=== PATIENT | female | born 1940 | race Caucasian/White ===

== ENCOUNTER 2019-04-22 10:55 | Outpatient (CLI) | payer BC ==
[2015-01-20 09:14] VITALS: O2SAT 95
== END 2019-04-22 10:56 | disposition home or self-care (01) | DRG 552 ==
LOC: CONVCARE 10:55
PROVIDERS: ATTEND Orthopaedic Surgery
DX: M51.17 Intervertebral disc disorders with radiculopathy, lumbosacral region (principal); M54.5 Low back pain
CPT/HCPCS: 73560